=== PATIENT | male | born 1965 | race Asian ===

== ENCOUNTER 2024-05-09 08:52 | Emergency (ER) | payer MEDICAID ==
[~2024-05-09] VITALS: Ht 170.2 cm; Wt 66.0 kg
[~2024-05-09 08:52] MED LIST: LEVO250T74 MT; OMEP20CA14 PO; SIMV-43 PO
[2024-05-09 08:57] VITALS: O2SAT 99
[2024-05-09 09:13] LABS: EOSINOPHILS % 1.3 % (0.0-5.0); HEMATOCRIT. 29.4 % (42.0-52.0); HEMOGLOBIN. 9.1 g/dL (14.0-18.0); LYMPHOCYTES % 21.5 % (20.0-50.0); MEAN CORPUSCULAR HEMOGLOBIN 20.2 pg (28.0-32.0); MEAN CORPUSCULAR HGB CONC 30.9 g/dL (31.0-37.0); MEAN CORPUSCULAR VOLUME 65.5 fL (80.0-94.0); MEAN PLATELET VOLUME 6.4 fl (7.4-10.4); MONOCYTES % 6.2 % (2.0-8.0); PLATELET 865 x1000/uL (130-400); RED BLOOD CELL COUNT 4.48 mill/uL (4.7-6.1); RED CELL DISTRIBUTION WIDTH 20.4 % (11.6-14.6)
[2024-05-09 09:15] LABS: ADD RBC MORPHOLOGY YES; DIFFERENTIAL COMMENT 1
[2024-05-09 09:19] LABS: POTASSIUM 4.6 mEq/L (3.5-5.1)
[2024-05-09 09:20] LABS: CALCIUM 9.6 mg/dL (8.7-10.4)
[2024-05-09 09:25] LABS: CREATININE 2.6 mg/dL (0.6-1.3)
[2024-05-09] MEDS ORDERED: LIDOCAINE HCL 1% 10 MG/ML 10ML VIAL ONE (13:49)
[2024-05-09 14:33] LABS: CLARITY URINE CLOUDY (CLEAR); COLOR URINE YELLOW (YELLOW); GLUCOSE URINE NEGATIVE (NEGATIVE); KETONES URINE NEGATIVE (NEGATIVE); LEUKOCYTE ESTERASE URINE 2+ (NEGATIVE); NITRITE URINE NEGATIVE (NEGATIVE); OCCULT BLOOD URINE 3+ (NEGATIVE); PH URINE 5.5 (4.5-8.0); PROTEIN URINE 3+ (NEGATIVE); SPECIFIC GRAVITY URINE 1.017 (1.005-1.030)
[2024-05-09 14:44] LABS: SQUAMOUS EPITHELIAL CELL URINE RARE /lpf (RARE/1+)
[2024-05-09 14:45] LABS: RBC URINE 25-50 /hpf (0-2); WBC URINE 50-100 /hpf (0-2)
[2024-05-09 14:47] LABS: BACTERIA URINE 2+
[2024-05-09 15:55] LABS: ANISOCYTOSIS 2+; HYPOCHROMASIA 2+; MICROCYTOSIS 3+; PLATELET ESTIMATE MARKEDLY INCREASED
[2024-05-09 15:56] VITALS: BP 153/91; PULSE 100; RESP 18; TEMP 98
[2024-05-09] MEDS ORDERED: SULF1TAB48 MT (16:04)
== END 2024-05-09 17:46 | disposition home or self-care (01) ==
LOC: ER 09:03
DX: Z49.02 Encounter for fitting and adjustment of peritoneal dialysis catheter (principal); E11.9 Type 2 diabetes mellitus without complications; I12.0 Hypertensive chronic kidney disease with stage 5 chronic kidney disease or end stage renal disease; E78.5 Hyperlipidemia, unspecified
CPT/HCPCS: 80048; 81003; 85025; 87086; 36415; 74176; 99284; J3490; Z7610; 47537

== ENCOUNTER 2024-10-10 11:33 | Emergency (ER) | payer MEDICAID ==
[~2024-10-10] VITALS: Ht 167.6 cm; Wt 70.3 kg
[~2024-10-10 11:33] MED LIST changes: +CEFT1FRO5 IV; -LEVO250T74 MT
[2024-10-10 11:34] VITALS: O2SAT 100
[2024-10-10 11:46] VITALS: O2SAT 99
[2024-10-10 12:43] LABS: HEMOGLOBIN. 12.2 g/dL (14.0-18.0); MEAN CORPUSCULAR HEMOGLOBIN 22.4 pg (28.0-32.0); MEAN CORPUSCULAR HGB CONC 31.2 g/dL (31.0-37.0); MEAN CORPUSCULAR VOLUME 71.7 fL (80.0-94.0); MEAN PLATELET VOLUME 7.1 fl (7.4-10.4); PLATELET 355 x1000/uL (130-400); RED BLOOD CELL COUNT 5.44 mill/uL (4.7-6.1); RED CELL DISTRIBUTION WIDTH 19.5 % (11.6-14.6); WHITE BLOOD COUNT 17.6 x1000/uL (4.5-11.0)
[2024-10-10 12:45] LABS: GLUCOSE URINE NEGATIVE (NEGATIVE)
[2024-10-10 12:46] LABS: DIFFERENTIAL COMMENT 1
[2024-10-10 12:51] LABS: CHLORIDE 103 mEq/L (98-107); POTASSIUM 4.5 mEq/L (3.5-5.1); SODIUM 135 mEq/L (136-145)
[2024-10-10 12:52] LABS: CARBON DIOXIDE 24 mEq/L (21-32)
[2024-10-10 12:53] LABS: CALCIUM 10.1 mg/dL (8.7-10.4)
[2024-10-10 12:57] LABS: CREATININE 2.3 mg/dL (0.6-1.3); GLUCOSE 167 mg/dL (70-105)
[2024-10-10 12:58] LABS: UREA NITROGEN BLOOD 33 mg/dL (9-23)
[2024-10-10 12:59] LABS: ALANINE AMINOTRANSFERASE 14 IU/L (10-49); ALBUMIN 4.7 g/dL (3.2-4.8); ASPARTATE AMINOTRANSFERASE 19 IU/L (<34); BILIRUBIN DIRECT 0.1 mg/dL (<=3.0)
[2024-10-10 13:00] LABS: BILIRUBIN TOTAL 0.5 mg/dL (0.1-1.0); PROTEIN TOTAL 8.7 g/dL (6.0-8.3)
[2024-10-10 13:09] LABS: CLARITY URINE TURBID (CLEAR); COLOR URINE BLOODY (YELLOW); PH URINE 6.5 (4.5-8.0); PROTEIN URINE 3+ (NEGATIVE)
[2024-10-10 13:10] LABS: KETONES URINE TRACE (NEGATIVE); OCCULT BLOOD URINE 3+ (NEGATIVE)
[2024-10-10 13:11] LABS: LEUKOCYTE ESTERASE URINE 1+ (NEGATIVE); NITRITE URINE NEGATIVE (NEGATIVE); UROBILINOGEN URINE 0.2 E.U./dL (0.2-1.0)
[2024-10-10 13:13] LABS: RBC URINE TNTC /hpf (0-2)
[2024-10-10 13:14] LABS: SQUAMOUS EPITHELIAL CELL URINE NONE SEEN /lpf (RARE/1+)
[2024-10-10 13:15] LABS: BACTERIA URINE 3+; WBC URINE 25-50 /hpf (0-2)
[2024-10-10 14:35] VITALS: BP 151/92; PULSE 120; RESP 16
[2024-10-10] MEDS: ONDANSETRON 4MG ODT PO ONE (14:35)
[2024-10-10] MEDS: KETOROLAC 30MG/ML VIAL IM ONE (14:35)
[2024-10-10] MEDS ORDERED: CEFP200T14 MT (15:21)
[2024-10-10] MEDS ORDERED: IBUP-2029 MT (15:21)
[2024-10-10 17:23] LABS: HYPOCHROMASIA 1+; MICROCYTOSIS 1+; PLATELET ESTIMATE NORMAL
== END 2024-10-10 15:46 | disposition home or self-care (01) ==
LOC: ER 11:33
DX: N13.6 Pyonephrosis (principal); Z79.899 Other long term (current) drug therapy
CPT/HCPCS: 99285; 74176; 80076; 80048; 81003; 83690; 85025; 86850; 86900; 86901; 87086; 87186; 87077; 36415; 93005; 96372; Q0162; J1885

== ENCOUNTER 2025-05-23 06:46 | Emergency (ER) | payer MEDICAID ==
[~2025-05-23] VITALS: Ht 167.6 cm; Wt 69.0 kg
[~2025-05-23 06:46] MED LIST changes: +HYDR-4009 MT
[2025-05-23 06:59] VITALS: O2SAT 100
[2025-05-23 07:26] LABS: CLARITY URINE TURBID (CLEAR); COLOR URINE YELLOW (YELLOW); GLUCOSE URINE TRACE (NEGATIVE); KETONES URINE NEGATIVE (NEGATIVE); LEUKOCYTE ESTERASE URINE 3+ (NEGATIVE); NITRITE URINE NEGATIVE (NEGATIVE); OCCULT BLOOD URINE 2+ (NEGATIVE); PH URINE 6.0 (4.5-8.0); PROTEIN URINE 4+ (NEGATIVE); SPECIFIC GRAVITY URINE 1.019 (1.005-1.030); UROBILINOGEN URINE 0.2 E.U./dL (0.2-1.0)
[2025-05-23 07:30] LABS: BASOPHILS % 0.5 % (0.0-2.0); EOSINOPHILS % 1.6 % (0.0-5.0); HEMATOCRIT. 27.3 % (42.0-52.0); HEMOGLOBIN. 8.4 g/dL (14.0-18.0); LYMPHOCYTES % 18.7 % (20.0-50.0); MEAN PLATELET VOLUME 6.8 fl (7.4-10.4); MONOCYTES % 11.5 % (2.0-8.0); NEUTROPHILS % 67.7 % (40.0-76.0); PLATELET 572 x1000/uL (130-400); RED BLOOD CELL COUNT 4.07 mill/uL (4.7-6.1); RED CELL DISTRIBUTION WIDTH 18.0 % (11.6-14.6)
[2025-05-23 07:34] LABS: ADD RBC MORPHOLOGY YES
[2025-05-23 07:47] LABS: UREA NITROGEN BLOOD 34.0 mg/dL (9-23)
[2025-05-23 08:04] LABS: CREATININE 4.0 mg/dL (0.6-1.3)
[2025-05-23] MEDS ORDERED: CEPH500C2 PO (08:29)
[2025-05-23 08:42] VITALS: BP 158/85; PULSE 79; RESP 18; TEMP 36.9; O2SAT 100
[2025-05-23 08:50] LABS: WBC URINE TNTC /hpf (0-2)
[2025-05-23 08:53] LABS: PLATELET ESTIMATE INCREASED
[2025-05-23 08:56] LABS: BACTERIA URINE 3+
[2025-05-27] MEDS ORDERED: ATEN50TA PO (14:09)
[2025-05-27] MEDS ORDERED: ATOR40TA70 PO (14:09)
== END 2025-05-23 08:45 | disposition home or self-care (01) ==
LOC: ER 06:46
DX: N39.0 Urinary tract infection, site not specified (principal); E78.00 Pure hypercholesterolemia, unspecified; E11.9 Type 2 diabetes mellitus without complications; I10 Essential (primary) hypertension; Z79.899 Other long term (current) drug therapy
CPT/HCPCS: 36415; 80048; 81003; 85025; 87077; 87186; 99283